=== PATIENT | male | born 1950 | race Caucasian/White ===

== ENCOUNTER → 2018-03-06 | Outpatient (CLI) | payer MEDICARE ==
[~2018-03-06] MED LIST: AUG500 PO; CIPR-344 PO; FAM20 PO; HYDR-389 PO; IBU800 PO; LOR5 PO; PER PO; PHEN200T32 PO
[2018-03-06 09:47] LABS: LDL CHOLESTEROL 141 mg/dl
== END ==
LOC: LAB 09:02
PROVIDERS: ATTEND Family Medicine
DX: Z12.5 Encounter for screening for malignant neoplasm of prostate (principal); E78.5 Hyperlipidemia, unspecified; Z85.46 Personal history of malignant neoplasm of prostate
CPT/HCPCS: 36415; 82310; 82374; 82435; 82465; 82565; 82947; 83718; 84132; 84153; 84295; 84478; 84520

== ENCOUNTER → 2018-10-04 | Outpatient (CLI) | payer MEDICARE | LOC: LAB 08:27 | DX: C61 Malignant neoplasm of prostate (principal) | CPT/HCPCS: 36415; 84153 ==

== ENCOUNTER → 2018-10-04 | Outpatient (CLI) | payer MEDICARE ==
[2018-10-04 09:03] LABS: LDL CHOLESTEROL 107 mg/dl
== END ==
LOC: LAB 08:24
PROVIDERS: ATTEND Family Medicine
DX: E78.5 Hyperlipidemia, unspecified (principal)
CPT/HCPCS: 82310; 82374; 82435; 82465; 82565; 82947; 83718; 84132; 84295; 84478; 84520